=== PATIENT | female | born 1980 | race American Indian/Alaskan Native ===

== ENCOUNTER 2018-11-22 06:48 | Outpatient (CLI) | payer MEDICAID ==
--- NOTE | 2018-11-22 10:48 | Mammography Report ---
BILATERAL DIGITAL SCREENING MAMMOGRAMS WITH CAD INDICATION: Screening. COMPARISONS: None available. FINDINGS: Craniocaudal and mediolateral oblique views of both breasts were obtained using 2-D digital acquisition. In addition to standard review, the examination was analyzed for possible abnormalities using a computer-assisted detection device (iCAD). There are scattered areas of fibroglandular density. A right asymmetry requires additional imaging. No architectural distortion or suspicious calcificatio ns. The left breast is negative. IMPRESSION: Right asymmetry requiring additional workup. Recommend recall for right ML and spot compression MLO a nd CC views and right breast ultrasound if needed. BI-RADS CATEGORY 0: INCOMPLETE - NEED ADDITIONAL IMAGING EVALUATION AND/OR PRIOR MAMMOGRAMS FOR COMP ARISON Information is entered into a reminder system for a target due date for the next mammogram. The resul ts and recommendations were sent to the patient by mail. Signer Name: Elieser Zaman MD Signed: 11/22/2018 10:44 AM Workstation Name: [id number]
== END 2018-11-22 06:49 | disposition home or self-care (01) ==
LOC: MAMMO 06:48
PROVIDERS: ATTEND Family Medicine
DX: Z12.31 Encounter for screening mammogram for malignant neoplasm of breast (principal)
CPT/HCPCS: 77067

== ENCOUNTER 2018-12-12 07:58 | Outpatient (CLI) | payer MEDICAID ==
--- NOTE | 2018-12-12 10:24 | Mammography Report ---
RIGHT BREAST DIAGNOSTIC MAMMOGRAM WITHOUT CAD AND RIGHT BREAST ULTRASOUND HISTORY: Recall for mammographic asymmetry. COMPARISON: 11/22/2018 FINDINGS: Right Breast Mammogram: ML and spot compression MLO and CC views were performed and demonstrate near complete effacement of asymmetry. Breast Ultrasound: Sonographic evaluation of the upper outer right breast was performed and demonstr ates no mass, cyst or shadowing. 2 small intramammary lymph nodes with central fat at 10:00 7 cm from the nipple and at 10:00 8 cm from the nipple. IMPRESSION Negative mammogram and right breast ultrasound. If the clinical examination remains stable, recommend bilateral screening mammogram in approximately one year. BIRADS 1: Negative. According to the [employer], yearly mammograms are recommended starting at age 40 and continuing as long as a woman is in good health. Clinical Breast Exams should be part of a period ic health exam-about every 3 years for women in their 20s and 30s and every year for women 40 and ove r. Breast self exam is an option for women starting in their 20s. Any breast change noted on a breast self exam should be reported promptly to the patient's healthcare provider. Breast MRI is recommende d for women with an approximately 20-25% or greater lifetime risk of breast cancer, including women w ith a strong family history of breast or ovarian cancer and women who have been treated for Hodgkin's disease. A negative Mammography report should not discourage follow up or biopsy of a clinically significant f inding and/or abnormality. Dense breast tissue may obscure small neoplasms. Signer Name: Elieser Zaman MD Signed: 12/12/2018 10:19 AM Workstation Name: [id number]
== END 2018-12-12 07:59 | disposition home or self-care (01) ==
LOC: MAMMO 07:58
PROVIDERS: ATTEND Family Medicine
DX: N60.21 Fibroadenosis of right breast (principal)